=== PATIENT | female | born 1955 | race Caucasian/White ===

== ENCOUNTER 2017-11-06 22:31 | Inpatient (IN) | payer MEDICARE ==
[~2017-11-06] VITALS: Ht 165.1 cm; Wt 72.6 kg
[2017-11-06] MEDS ORDERED: ONDANSETRON ODT 4 MG TAB.RAPDIS ONE (23:14)
[2017-11-06 23:25] LABS: BASO % 0 % (0-3); EOS % 0 % (0-3); HEMATOCRIT 39.9 % (36.0-47.0); HEMOGLOBIN 13.8 g/dL (12.0-15.5); LYMPH # 0.9 x10^3/uL (1.0-4.8); LYMPH % 12 % (24-48); MEAN CORPUSCULAR HEMOGLOBIN 33 pg (25-35); MEAN CORPUSCULAR HGB CONC 35 g/dL (31-37); MEAN CORPUSCULAR VOLUME 96 fL (79-100); MONO % 14 % (0-9); NEUT # 5.4 x10^3uL (1.8-7.7); NEUT % 74 % (31-73); PLATELET COUNT 128 x10^3/uL (140-400); RED BLOOD COUNT 4.15 x10^6/uL (3.50-5.40); RED CELL DISTRIBUTION WIDTH 13.4 % (11.5-14.5); WHITE BLOOD COUNT 7.3 x10^3/uL (4.0-11.0)
[2017-11-06 23:33] LABS: ALBUMIN/GLOBULIN RATIO 0.9 (1.0-1.7); CALCIUM 8.9 mg/dL (8.5-10.1); CREATININE 0.5 mg/dL (0.6-1.0); GFR 125.9; TOTAL BILIRUBIN 1.1 mg/dL (0.2-1.0); TOTAL PROTEIN 8.4 g/dL (6.4-8.2)
--- NOTE | 2017-11-06 23:43 | EKG ---
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
[2017-11-06] MEDS ORDERED: ASPIRIN 81 MG TAB.CHEW PO ONE (23:45)
[2017-11-06] MEDS ORDERED: ONDANSETRON PF 4 MG/2 ML VIAL. IV ONE (23:45)
[2017-11-06] MEDS ORDERED: LORazepam 2 MG/ML VIAL IV ONE (23:45)
[2017-11-06] MEDS ORDERED: IV NORMAL SALINE 1,000ML 1,000 ML IV ONE (23:45)
[2017-11-07] VITALS (7 sets, daily range): BP systolic 118–138; BP diastolic 72–94
[2017-11-07 00:02] LABS: COLOR,URINE YELLOW
[2017-11-07 00:03] LABS: BILIRUBIN,URINE NEG (NEG); CLARITY,URINE HAZY; GLUCOSE,URINE NEG (NEG)
[2017-11-07 00:04] LABS: NITRITE,URINE NEG (NEG); UROBILINOGEN,URINE 1 mg/dL (0.2 mg/dL)
[2017-11-07 00:12] LABS: BACTERIA,URINE FEW /HPF (0-FEW); SQUAMOUS EPITHELIAL CELL,UR FEW /LPF
[2017-11-07 00:15] LABS: POTASSIUM 3.6 mmol/L (3.5-5.1)
[2017-11-07] MEDS ORDERED: IV NORMAL SALINE 1,000ML 1,000 ML IV SCH (00:52)
[2017-11-07] MEDS ORDERED: RIVAROXABAN 10 MG TABLET. PO ONE (02:00)
[2017-11-07 02:25] LABS: CALCIUM 8.6 mg/dL (8.5-10.1); CREATININE 0.7 mg/dL (0.6-1.0); GFR 85.4; POTASSIUM 3.9 mmol/L (3.5-5.1)
[2017-11-07] MEDS ORDERED: LORazepam 2 MG/ML VIAL IV PRN ×2 (03:00)
--- NOTE | 2017-11-07 03:46 | PHYS DOC ---
Adult General Chief Complaint Chief Complaint: TREMORS HPI HPI 62-year-old female with a history of atrial fibrillation previously on Zarrella toe but noncompliant over the last year. Patient also has muscular dystrophy which manifests itself mostly in her lower legs bilaterally. She intermittently has tremors as her baseline. Patient now presents to the emergency department complaining of generalized weakness and malaise. She states she's felt this way previously when her electrolytes were out of whack and she is concerned that that might be the case today. No chest pain or shortness of breath. Denies abdominal pain. Normal bowel and bladder habits. Review of Systems Review of Systems Constitutional: Denies fever or chills [] Eyes: Denies change in visual acuity, redness, or eye pain [] HENT: Denies nasal congestion or sore throat [] Respiratory: Denies cough or shortness of breath [] Cardiovascular: No additional information not addressed in HPI [] GI: Denies abdominal pain, nausea, vomiting, bloody stools or diarrhea [] : Denies dysuria or hematuria [] Musculoskeletal: Denies back pain or joint pain [] Integument: Denies rash or skin lesions [] Neurologic: Denies headache, focal weakness or sensory changes [] Endocrine: Denies polyuria or polydipsia [] All other systems were reviewed and found to be within normal limits, except as documented in this note. Current Medications Current Medications Current Medications Medications (Trade) Dose Ordered Sig/Josef Start Time Stop Time Status Last Admin Dose Admin Aspirin (Children'S Aspirin) 324 mg 1X ONCE 11/06/17 23:45 11/06/17 23:46 DC 11/06/17 23:26 324 MG Lorazepam (Ativan) 1 mg 1X ONCE 11/06/17 23:45 11/06/17 23:46 DC 11/06/17 23:45 1 MG Ondansetron HCl (Zofran Odt) 4 mg STK-MED ONCE 11/06/17 23:14 11/06/17 23:15 DC Ondansetron HCl (Zofran) 4 mg PRN Q4HRS PRN 11/07/17 01:00 11/08/17 00:59 Sodium Chloride 1,000 ml @ 125 mls/hr Q8H 11/07/17 00:52 11/07/17 02:57 DC 11/07/17 01:57 125 MLS/HR Allergies Allergies Allergies Coded Allergies Type Severity Reaction Last Updated Verified No Known Drug Allergies 11/06/17 No Physical Exam Physical Exam Chronically weak appearing female mild tremor. Both ankles show mild internal internally rotation which is baseline for her. She is generally weak with no focal deficit. Clear lungs irregularly irregular rhythm no tachycardia on exam Constitutional: no acute distress, non-toxic appearance. [] HENT: Normocephalic, atraumatic, bilateral external ears normal, oropharynx moist, no oral exudates, nose normal. [] Eyes: PERRLA, EOMI, conjunctiva normal, no discharge. [] Neck: Normal range of motion, no tenderness, supple, no stridor. [] Cardiovascular: Atrial fibrillation on monitor no murmur [] Lungs & Thorax: Bilateral breath sounds clear to auscultation [] Abdomen: Bowel sounds normal, soft, no tenderness, no masses, no pulsatile masses. [] Skin: Warm, dry, no erythema, no rash. [] Back: No tenderness, no CVA tenderness. [] Extremities: No tenderness, no cyanosis, no clubbing, ROM intact, no edema. [] Neurologic: Alert and oriented X 3, tremor, normal sensory function, no focal deficits noted. [] Psychologic: Affect mildly anxious Current Patient Data Vital Signs Vital Signs Date Time Temp Pulse Resp B/P (MAP) Pulse Ox O2 Delivery O2 Flow Rate FiO2 11/07/17 01:50 98.7 127 18 125/82 (96) 98 Room Air Lab Results Laboratory Tests Test 11/06/17 22:56 11/06/17 23:27 11/07/17 02:05 White Blood Count 7.3 x10^3/uL (4.0-11.0) Red Blood Count 4.15 x10^6/uL (3.50-5.40) Hemoglobin 13.8 g/dL (12.0-15.5) Hematocrit 39.9 % (36.0-47.0) Mean Corpuscular Volume 96 fL (79-100) Mean Corpuscular Hemoglobin 33 pg (25-35) Mean Corpuscular Hemoglobin Concent 35 g/dL (31-37) Red Cell Distribution Width 13.4 % (11.5-14.5) Platelet Count 128 x10^3/uL (140-400) L Neutrophils (%) (Auto) 74 % (31-73) H Lymphocytes (%) (Auto) 12 % (24-48) L Monocytes (%) (Auto) 14 % (0-9) H Eosinophils (%) (Auto) 0 % (0-3) Basophils (%) (Auto) 0 % (0-3) Neutrophils # (Auto) 5.4 x10^3uL (1.8-7.7) Lymphocytes # (Auto) 0.9 x10^3/uL (1.0-4.8) L Monocytes # (Auto) 1.0 x10^3/uL (0.0-1.1) Eosinophils # (Auto) 0.0 x10^3/uL (0.0-0.7) Basophils # (Auto) 0.0 x10^3/uL (0.0-0.2) Sodium Level 125 mmol/L (136-145) L 127 mmol/L (136-145) L Potassium Level 3.6 mmol/L (3.5-5.1) 3.9 mmol/L (3.5-5.1) Chloride Level 88 mmol/L (98-107) L 92 mmol/L (98-107) L Carbon Dioxide Level 21 mmol/L (21-32) 20 mmol/L (21-32) L Anion Gap 16 (6-14) H 15 (6-14) H Blood Urea Nitrogen 4 mg/dL (7-20) L 4 mg/dL (7-20) L Creatinine 0.5 mg/dL (0.6-1.0) L 0.7 mg/dL (0.6-1.0) Estimated GFR (Cockcroft-Gault) 125.9 85.4 BUN/Creatinine Ratio 8 (6-20) Glucose Level 99 mg/dL (70-99) 110 mg/dL (70-99) H Calcium Level 8.9 mg/dL (8.5-10.1) 8.6 mg/dL (8.5-10.1) Total Bilirubin 1.1 mg/dL (0.2-1.0) H Aspartate Amino Transferase (AST) 103 U/L (15-37) H Alanine Aminotransferase (ALT) 126 U/L (14-59) H Alkaline Phosphatase 99 U/L (46-116) Troponin I Quantitative < 0.017 ng/mL (0-0.055) Total Protein 8.4 g/dL (6.4-8.2) H Albumin 4.0 g/dL (3.4-5.0) Albumin/Globulin Ratio 0.9 (1.0-1.7) L Urine Collection Type Unknown Urine Color Yellow Urine Clarity Hazy Urine pH 6.5 Urine Specific [place] 1.015 Urine Protein 30 mg/dl (NEG-TRACE) Urine Glucose (UA) Neg mg/dL (NEG) Urine Ketones (Stick) 15 mg/dL (NEG) Urine Blood Trace (NEG) Urine Nitrite Neg (NEG) Urine Bilirubin Neg (NEG) Urine Urobilinogen Dipstick 1 mg/dL (0.2 mg/dL) Urine Leukocyte Esterase Small (NEG) Urine RBC 1-2 /HPF (0-2) Urine WBC 5-10 /HPF (0-4) Urine Squamous Epithelial Cells Few /LPF Urine Bacteria Few /HPF (0-FEW) Urine Mucus Slight /LPF EKG EKG EKG with atrial fibrillation ventricular rate at 112, normal axis, no STEMI, interpreted by me[] Radiology/Procedures Radiology/Procedures Chest x-ray with chronic changes no acute disease interpreted by me[] Course & Med Decision Making Course & Med Decision Making Pertinent Labs and Imaging studies reviewed. (See chart for details) [] Dragon Disclaimer Dragon Disclaimer This electronic medical record was generated, in whole or in part, using a voice recognition dictation system. Departure Departure: Impression: Primary Impression: Hyponatremia Additional Impressions: Hypochloremia Atrial fibrillation, chronic Noncompliance with medication regimen Disposition: ADMITTED INPATIENT Admitting Physician: Damon Rutledge Condition: GUARDED Referrals: PCP,NO (PCP) Problem Qualifiers ELOISA MEJIA MD November 07, 2017 03:46
[2017-11-07] MEDS: ONDANSETRON PF 4 MG/2 ML VIAL. IV PRN ×2 (04:01→11:59)
[2017-11-07] MEDS ORDERED: ONDANSETRON ODT 4 MG TAB.RAPDIS PO ONE (07:15)
[2017-11-07 08:22] LABS: BARBITURATES NEG (NEG); BENZODIAZEPINES NEG (NEG); CANNABINOIDS NEG (NEG); COCAINE NEG (NEG); METHADONE NEG (NEG); OPIATES NEG (NEG); PHENCYCLIDINE NEG (NEG)
[2017-11-07 08:25] LABS: ALBUMIN 3.7 g/dL (3.4-5.0); DIRECT BILIRUBIN 0.4 mg/dL (0.0-0.2); TOTAL BILIRUBIN 1.2 mg/dL (0.2-1.0); TOTAL PROTEIN 8.2 g/dL (6.4-8.2)
[2017-11-07 08:27] LABS: AMPHETAMINE/METHAMPHETAMINE NEG (NEG)
--- NOTE | 2017-11-07 09:04 | RAD ---
AP chest. HISTORY: Chest pain AP view was taken of the chest. Lungs are clear. There is no pneumothorax or pleural effusion. There is a small hiatus hernia behind the heart. Heart is normal in size. IMPRESSION: 1. No acute chest disease. Electronically signed by: Emeka Zaidi MD (11/07/2017 9:01 AM) [facility]
[2017-11-07] MEDS: THIAMINE IM 200 MG/2 ML VIAL. IM SCH (10:15)
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
[2017-11-07] MEDS ORDERED: chlordiazePOXIDE HCL 25 MG CAPSULE PO PRN (11:00)
--- NOTE | 2017-11-07 11:33 | PDOC2 ---
CONSULT Date of Admission DATE: 11/07/17 TIME: 11:33 Reason for Consult: Atrial fibrillation Referring Physician: Dr. Rutledge Chief Complaint Tremors Source: Chart review, Patient Problem List Problems Medical Problems: (1) Atrial fibrillation, chronic Status: Acute (2) Hypochloremia Status: Acute (3) Hyponatremia Status: Acute (4) Noncompliance with medication regimen Status: Acute History of Present Illness 62-year-old female who was diagnosed with atrial fibrillation approximately one year ago in [place], [place] apparently was visiting her son when she started having tremors and weakness. She was apparently drinking alcohol for the past couple of days and actually had nausea and vomiting. She was found to be in atrial fibrillation with rapid ventricular response in the emergency room and admitted for further management. She stopped taking her medications for atrial fibrillation including Xarelto approximately 3 months after initiation because she did not want to take the medications. She was apparently diagnosed with muscular dystrophy when she was 27 years old. She denied any chest pain, orthopnea/PND, syncope. Past Medical History Atrial fibrillation, most probably chronic Congestive heart failure Gastroesophageal reflux disease Family History Negative for premature coronary artery disease Social History Patient has history of alcohol abuse but denied any smoking or drug abuse Current Medications Current Medications Aspirin (Children'S Aspirin) 324 mg 1X ONCE PO Last administered on 11/06/17at 23:26; Start 11/06/17 at 23:45; Stop 11/07/17 at 10:53; Status DC Ondansetron HCl (Zofran) 4 mg 1X ONCE IV ; Start 11/06/17 at 23:45; Stop at 23:46; Status DC Sodium Chloride 1,000 ml @ 1,000 mls/hr 1X ONCE IV Last administered on at 23:26; Start 11/06/17 at 23:45; Stop 11/07/17 at 00:44; Status DC Ondansetron HCl (Zofran Odt) 4 mg STK-MED ONCE .ROUTE ; Start 11/06/17 at 23:14 ; Stop 11/06/17 at 23:15; Status DC Lorazepam (Ativan) 1 mg 1X ONCE IV Last administered on 11/06/17at 23:45; Start 11/06/17 at 23:45; Stop 11/06/17 at 23:46; Status DC Ondansetron HCl (Zofran) 4 mg PRN Q4HRS PRN IV NAUSEA/VOMITING Last administered on 11/07/17at 04:01; Start 11/07/17 at 01:00; Stop 11/08/17 at 00:59 Sodium Chloride 1,000 ml @ 125 mls/hr Q8H IV Last administered on 11/07/17at 01 :57; Start 11/07/17 at 00:52; Stop 11/07/17 at 02:57; Status DC Rivaroxaban (Xarelto) 20 mg 1X ONCE PO Last administered on 11/07/17at 01:56; Start 11/07/17 at 02:00; Stop 11/07/17 at 02:01; Status DC Lorazepam (Ativan) 2 mg PRN Q1HR PRN IV For CIWA 8-14 Last administered on 11/07at 09:31; Start 11/07/17 at 03:00; Stop 11/07/17 at 10:53; Status DC Lorazepam (Ativan) 4 mg PRN Q1HR PRN IV For CIWA 15 or greater; Start 11/07/17 at 03:00 Ondansetron HCl (Zofran Odt) 4 mg 1X ONCE PO Last administered on 11/06/17at 23 :15; Start 11/07/17 at 07:15; Stop 11/07/17 at 07:16; Status DC Thiamine HCl (Thiamine Im) 100 mg DAILY IM ; Start 11/07/17 at 10:15 Prenat Multivit/ Manager Unix/Iron/Folic Ac (Multivitamin ) 1 tab DAILY PO ; Start 11/08/17 at 09:00 Multivitamins/ Minerals 10 ml/ Folic Acid 1 mg/ Thiamine HCl 100 mg/Sodium Chloride 1,011.1 ml @ 100 mls/ hr 1X ONCE IV ; Start 11/07/17 at 12:00; Stop 11/07/17 at 22:06 Rivaroxaban (Xarelto) 20 mg DAILYWSUP PO ; Start 11/07/17 at 17:00 Metoprolol Succinate (Toprol Xl) 25 mg DAILY PO ; Start 11/07/17 at 11:00 Chlordiazepoxide (Librium) 50 mg PRN Q1HR PRN PO For CIWA 8-14; Start 11/07/17 at 11:00 Active Scripts Active Reported No Known Medications Prior To Admisstion (Info) Each 1 Each Allergies: Coded Allergies: No Known Drug Allergies (Unverified , 11/06/17) General: YES: Other (tremors) PSYCHOLOGICAL ROS: No: Hallucinations, Mood Swings Eyes: No: Loss of vision HEENT: No: Epistaxis Respiratory: No: Hemoptysis, Shortness of breath Cardiovascular: yes: Palpitations; No: Chest Pain Gastrointestinal: YES: Nausea, Vomiting Genitourinary: No: Henaturia Neurological: No: Seizures Skin: No: Rash General: Alert, Oriented X3 HEENT: Atraumatic Lungs: Clear to auscultation Heart: Other (heart rate is irregular) Abdomen: Soft Extremities: No edema Psych/Mental Status: Mood NL VITALS Vital Signs Date Time Temp Pulse Resp B/P (MAP) Pulse Ox O2 Delivery O2 Flow Rate FiO2 11/07/17 08:20 Room Air 11/07/17 08:16 105 18 132/81 (98) 98 11/07/17 01:50 98.7 Labs Laboratory Tests Test 11/06/17 22:56 11/06/17 23:27 11/07/17 00:01 11/07/17 02:05 White Blood Count 7.3 x10^3/uL (4.0-11.0) Red Blood Count 4.15 x10^6/uL (3.50-5.40) Hemoglobin 13.8 g/dL (12.0-15.5) Hematocrit 39.9 % (36.0-47.0) Mean Corpuscular Volume 96 fL (79-100) Mean Corpuscular Hemoglobin 33 pg (25-35) Mean Corpuscular Hemoglobin Concent 35 g/dL (31-37) Red Cell Distribution Width 13.4 % (11.5-14.5) Platelet Count 128 x10^3/uL (140-400) Neutrophils (%) (Auto) 74 % (31-73) Lymphocytes (%) (Auto) 12 % (24-48) Monocytes (%) (Auto) 14 % (0-9) Eosinophils (%) (Auto) 0 % (0-3) Basophils (%) (Auto) 0 % (0-3) Neutrophils # (Auto) 5.4 x10^3uL (1.8-7.7) Lymphocytes # (Auto) 0.9 x10^3/uL (1.0-4.8) Monocytes # (Auto) 1.0 x10^3/uL (0.0-1.1) Eosinophils # (Auto) 0.0 x10^3/uL (0.0-0.7) Basophils # (Auto) 0.0 x10^3/uL (0.0-0.2) Sodium Level 125 mmol/L (136-145) 127 mmol/L (136-145) Potassium Level 3.6 mmol/L (3.5-5.1) 3.9 mmol/L (3.5-5.1) Chloride Level 88 mmol/L (98-107) 92 mmol/L (98-107) Carbon Dioxide Level 21 mmol/L (21-32) 20 mmol/L (21-32) Anion Gap 16 (6-14) 15 (6-14) Blood Urea Nitrogen 4 mg/dL (7-20) 4 mg/dL (7-20) Creatinine 0.5 mg/dL (0.6-1.0) 0.7 mg/dL (0.6-1.0) Estimated GFR (Cockcroft-Gault) 125.9 85.4 BUN/Creatinine Ratio 8 (6-20) Glucose Level 99 mg/dL (70-99) 110 mg/dL (70-99) Calcium Level 8.9 mg/dL (8.5-10.1) 8.6 mg/dL (8.5-10.1) Total Bilirubin 1.1 mg/dL (0.2-1.0) 1.2 mg/dL (0.2-1.0) Aspartate Amino Transf (AST/SGOT) 103 U/L (15-37) 88 U/L (15-37) Alanine Aminotransferase (ALT/SGPT) 126 U/L (14-59) 115 U/L (14-59) Alkaline Phosphatase 99 U/L (46-116) 92 U/L (46-116) Troponin I Quantitative < 0.017 ng/mL (0-0.055) Total Protein 8.4 g/dL (6.4-8.2) 8.2 g/dL (6.4-8.2) Albumin 4.0 g/dL (3.4-5.0) 3.7 g/dL (3.4-5.0) Albumin/Globulin Ratio 0.9 (1.0-1.7) Urine Collection Type Unknown Urine Color Yellow Urine Clarity Hazy Urine pH 6.5 Urine Specific [place] 1.015 Urine Protein 30 mg/dl (NEG-TRACE) Urine Glucose (UA) Neg mg/dL (NEG) Urine Ketones (Stick) 15 mg/dL (NEG) Urine Blood Trace (NEG) Urine Nitrite Neg (NEG) Urine Bilirubin Neg (NEG) Urine Urobilinogen Dipstick 1 mg/dL (0.2 mg/dL) Urine Leukocyte Esterase Small (NEG) Urine RBC 1-2 /HPF (0-2) Urine WBC 5-10 /HPF (0-4) Urine Squamous Epithelial Cells Few /LPF Urine Bacteria Few /HPF (0-FEW) Urine Mucus Slight /LPF Urine Opiates Screen Neg (NEG) Urine Methadone Screen Neg (NEG) Urine Barbiturates Neg (NEG) Urine Phencyclidine Screen Neg (NEG) Urine Amphetamine/Methamphetamine Neg (NEG) Urine Benzodiazepines Screen Neg (NEG) Urine Cocaine Screen Neg (NEG) Urine Cannabinoids Screen Neg (NEG) Urine Ethyl Alcohol Pos (NEG) Erythrocyte Sedimentation Rate 4 (0-25) Direct Bilirubin 0.4 mg/dL (0.0-0.2) Creatine Kinase 205 U/L (26-192) Ethyl Alcohol Level < 10 mg/dL (0-10) Assessment/Plan 1. Atrial fibrillation most probably permanent, presenting with rapid ventricular response. Heart rate better controlled since admission. Continue Xarelto for stroke prophylaxis and beta blockers for rate control. Check 2-D echo to assess LV systolic function - could be done as an outpatient. 2. Nausea, vomiting, hyponatremia and tremor: Treat per IM 3. Alcohol abuse: Monitor for withdrawal symptoms Thank you for your consultation YAZ GODFREY MD November 07, 2017 11:33
--- NOTE | 2017-11-07 11:55 | RAD ---
EXAM: Head CT without contrast. HISTORY: Tremors. TECHNIQUE: Computed tomographic images of the head were obtained without contrast. *One or more of the following individualized dose reduction techniques were utilized for this examination: 1. Automated exposure control. 2. Adjustment of the mA and/or kV according to patient size. 3. Use of iterative reconstruction technique. COMPARISON: None. FINDINGS: There is no acute or subacute extra-axial or intraparenchymal hemorrhage. There is no mass effect or midline shift. There is no hydrocephalus. There is hypodensity within the superior right cerebellum likely due to chronic infarction. There are scattered areas of hypodensity throughout the cerebral white matter, likely due to chronic small vessel disease. There is cerebral atrophy. The visualized portions of the orbits, paranasal sinuses and mastoid air cells are unremarkable. No suspicious calvarial lesion is seen. IMPRESSION: 1. Scattered areas of hypodensity within the cerebral white matter, likely due to chronic small vessel disease. 2. Suspected chronic infarct within the superior right cerebellum. 3. Cerebral atrophy. 4. Note is made that MRI is more sensitive for acute infarction. Electronically signed by: Emily Coates MD (11/07/2017 11:52 AM) [facility]
[2017-11-07] MEDS: METOPROLOL SUCC 24HR ER 25 MG TAB.ER.24H. PO SCH (11:58)
[2017-11-07] MEDS ORDERED: MVI, ADULT NO.4 WITH VIT K 10 ML, FOLIC ACID SYRINGE for ER 1 MG, THIAMINE 100 MG in IV... IV ONE ×4 (12:00)
[2017-11-07] MEDS ORDERED: IOHEXOL 300 MG/ML 75 ML VIAL. IV ONE (15:45)
[2017-11-07] MEDS: RIVAROXABAN 10 MG TABLET. PO SCH (17:24)
--- NOTE | 2017-11-07 18:50 | RAD ---
CTA neck and head with and without contrast 11/07/2017. Reason for exam: Cerebellar infarct. Helical thin section CT images were performed through the neck and head using an infusion of 75 mL Omnipaque 300. Multiplanar and 3-D reformations were performed. Carotid stenoses in the neck were graded per NASCET criteria. Exposure: One or more of the following individualized dose reduction techniques were utilized for this examination: 1. Automated exposure control 2. Adjustment of the mA and/or kV according to patient size 3. Use of iterative reconstruction technique. CTA neck findings: There appears to be the standard branching pattern of the great vessels from the aorta. The common carotid arteries have mild tortuosity and there is mild motion artifact, but there is no evidence of stenosis or significant plaque. The carotid bulbs are widely patent. The internal carotid arteries show some tortuosity in the neck. There is probably mild motion artifact. There may be some fibromuscular dysplasia bilaterally through the distal internal carotid arteries. No significant stenosis is seen. Both vertebral arteries are patent. The left is larger than the right. There is mild motion artifact. No narrowing is seen. There is no evidence of occlusion or dissection. The subclavian arteries show no narrowing. Although this study was not performed to evaluate other structures, no adenopathy or soft tissue mass is seen in the neck. The airway appears normal. The salivary glands and thyroid show no abnormality. IMPRESSION: No acute abnormality. Possible FMD of distal internal carotid arteries in the neck versus motion artifact. CTA head findings: The distal vertebral arteries are patent and show no apparent abnormality extending to their confluence. The basilar artery and internal carotid arteries are patent extending through the skull base to the brain. There is probably mild motion artifact, but no focal narrowing or aneurysmal dilatation is seen. The anterior, middle and posterior cerebral branches are patent bilaterally and show no apparent abnormality extending to their major branch points. No focal narrowing or aneurysmal dilatation is seen. No abnormal vascularity is evident. The visualized cerebellar branches appear normal. IMPRESSION: Normal CTA of the head. Electronically signed by: Danielito Segovia Jr., MD (11/07/2017 6:46 PM) [facility]
[2017-11-08] VITALS (8 sets, daily range): BP systolic 100–137; BP diastolic 68–90
[2017-11-08 05:51] LABS: BASO % 0 % (0-3); EOS % 1 % (0-3); HEMATOCRIT 33.1 % (36.0-47.0); HEMOGLOBIN 11.3 g/dL (12.0-15.5); LYMPH # 0.9 x10^3/uL (1.0-4.8); LYMPH % 17 % (24-48); MEAN CORPUSCULAR HEMOGLOBIN 33 pg (25-35); MEAN CORPUSCULAR HGB CONC 34 g/dL (31-37); MEAN CORPUSCULAR VOLUME 98 fL (79-100); MONO # 0.8 x10^3/uL (0.0-1.1); MONO % 16 % (0-9); NEUT # 3.5 x10^3uL (1.8-7.7); NEUT % 66 % (31-73); PLATELET COUNT 105 x10^3/uL (140-400); RED BLOOD COUNT 3.38 x10^6/uL (3.50-5.40); RED CELL DISTRIBUTION WIDTH 13.1 % (11.5-14.5); WHITE BLOOD COUNT 5.3 x10^3/uL (4.0-11.0)
[2017-11-08 05:58] LABS: CALCIUM 8.3 mg/dL (8.5-10.1); CREATININE 0.6 mg/dL (0.6-1.0); POTASSIUM 3.4 mmol/L (3.5-5.1)
[2017-11-08] MEDS: THIAMINE IM 200 MG/2 ML VIAL. IM SCH (08:01)
[2017-11-08] MEDS: METOPROLOL SUCC 24HR ER 25 MG TAB.ER.24H. PO SCH (08:01)
[2017-11-08] MEDS ORDERED: PRENATAL MULTIVITAMIN TABLET. PO SCH (09:00)
--- NOTE | 2017-11-08 12:01 | CONS ---
DATE OF CONSULTATION: REFERRING PHYSICIAN: Dr. Rutledge. REASON FOR CONSULTATION: Unsteadiness and tremor. HISTORY OF PRESENT ILLNESS: This is a 62-year-old right-handed female who was admitted to Emergency Room after she presented with a chief complaint of worsening of the tremor of the upper extremity and unsteady gait. The patient stated she has had a longstanding history of muscular dystrophy since born, diagnosed genetically. She stated she never had a tremor of the upper extremity until 4 days ago and it got worse on the day of admission. The patient is a resident of a local home. She came to [place] for her son's graduation. She stated she has been drinking beer excessively throughout her adulthood, the last drink was 1 day prior to the admission. The patient was found to have atrial fibrillation with rapid ventricular response. She stated she used to be on ____, but she has not been taking the medicine for a while because of is not covered by her insurance. She denies headaches, visual disturbances, nausea, vomiting, chest pain, shortness of breath, but she complains of palpitations. The patient stated she is anxious person in nature. She has had frequent falls recently. 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 Currently, she denies numbness or paresthesia. PAST MEDICAL HISTORY: The patient states she had muscular dystrophy when she was a child and she has had abnormal gait since. She also has history of atrial fibrillation, congestive heart failure, alcoholism, and GERD. FAMILY HISTORY: Positive for muscular dystrophy affecting several members in her family. SOCIAL HISTORY: She is . She denies smoking, but she drinks 4-5 beers daily throughout her life. She denies illegal drug use. CURRENT HOME MEDICATIONS: None. ALLERGIES: No known drug allergies. PHYSICAL EXAMINATION: GENERAL: Well-developed, well-nourished white female, not in acute distress. She weighs ____ pounds. VITAL SIGNS: Blood pressure is 132/81, respiratory rate 18, pulse is 105, oxygen saturation 98% on room air. HEENT: Normocephalic, atraumatic, otherwise unremarkable. NECK: Supple, negative for carotid bruit, JVD, or thyromegaly. LUNGS: Clear to A and P. CARDIOVASCULAR: Regular rhythm with rapid ventricular response. Normal S1, S2. No murmur. ABDOMEN: Soft. Bowel sounds positive. There is no tenderness or organomegaly. EXTREMITIES: Negative for cyanosis, clubbing or pitting edema, but positive for hammertoes. NEUROLOGICAL: Mental status: The patient is alert and oriented x 3. Speech is fluent. There is no language dysfunction. The patient recalls 2/3 immediately and after 1 and 3 minutes. Judgment abstract and thinkings are normal. The patient denies hallucination or delusion. Cranial nerves: Visual park are full. The pupils are reactive to light and accommodation. The extraocular movements are intact. There is no nystagmus. There is no facial motor or sensory deficit. Hearing is intact bilaterally. The palate is elevated symmetrically. Sternocleidomastoid muscles are powerful bilaterally. The patient shrugs her shoulders symmetrically, protrudes her tongue in the midline without fasciculation or atrophy. Motor: No focal muscle bulk was seen. The tone is normal. The strength is 4/5 throughout. The patient has marked postural and kinetic tremors with intention tremor of both upper extremities with abnormal [id number]. Sensory: Revealed normal pinprick, light touch, vibratory and position senses. Deep tendon reflexes were symmetric and hypoactive with absent Achilles responses. Gait: The patient has unsteady stance with ataxia and abnormal tandem gait. LABORATORY DATA: CBC revealed white cells of 7300, hemoglobin 13.8, hematocrit 39.9, platelet count 100,000-108,000. Chemistry revealed a sodium of 127, potassium 3.9, chloride 92, CO2 of 20, BUN 4, creatinine 0.7, glucose 110 and calcium 8.6. Liver enzymes elevated of AST and ALT with total bilirubin of 1.2 and direct bilirubin is 0.4. Troponin level is normal. Creatinine kinase is 205, probably secondary to frequent falls. Urinalysis is small urinary leukocyte esterase with white blood cells of 5-10. Urine drug screen is positive for alcohol. IMPRESSION: 1. Persistent postural and kinetic tremor of the upper extremities, which has worsened in the last 4 days, likely due to chronic alcoholism and possible alcohol withdrawal, aggravated by anxiety. 2. Permanent atrial fibrillations with current rapid ventricular response. 3. Alcoholism. 4. Hyponatremia. 5. Ataxia, probably multifactorial. 6. 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 7. Thrombocytopenia likely due to alcoholism. RECOMMENDATIONS: 1. A head CT scan with CT angio of the neck. 2. Cardiology consult and restart the patient on anticoagulant, ____. 3. Echocardiogram. 4. To start alcohol withdrawal protocol. 5. Correct hyponatremia slowly. 6. Alcohol cessation. M Ricardo HUNTER MD DR: BRYANT/jewel JOB#: [id number] / [id number]
[2017-11-08] MEDS ORDERED: RIVA20TA2 PO (13:12)
[2017-11-08] MEDS ORDERED: PREN1TAB13 PO (13:12)
[2017-11-08] MEDS ORDERED: METO-239 PO (13:12)
--- NOTE | 2017-11-08 13:14 | DISCH ---
DISCHARGE INSTRUCTIONS-DC Condition on Discharge Condition on Discharge: Stable Activity after Discharge Activity Instructions for Disc: Progressive ambulation Diet after Discharge Diet after Discharge: Cardiac Checks after Discharge Checks after discharge: Check blood press - daily Contacting the DR. after DC Call your doctor for: If your condition worsens Follow-Up Follow up with: PCP JULIA (call tomorrow for appt) DIAMOND YU MD November 08, 2017 13:14
[2017-11-08] MEDS ORDERED: POTASSIUM CHLORIDE 20 MEQ TABLET.ER. PO ONE (13:15)
--- NOTE | 2017-11-08 13:20 | PDOC3 ---
Discharge Summary Discharge Summary Date of Admission Date of Admission: November 07, 2017 at 01:37 Admitting Diagnosis Hyponatremia Gait instability Alcoholism Atrial fibrillation Date of Discharge: November 08, 2017 Discharge Diagnosis Hyponatremia Gait instability Alcoholism Atrial fibrillation CVA (Cerebellar) Laboratory Findings Laboratory Tests Test 11/06/17 22:56 11/06/17 23:27 11/07/17 00:01 11/07/17 02:05 White Blood Count 7.3 x10^3/uL (4.0-11.0) Red Blood Count 4.15 x10^6/uL (3.50-5.40) Hemoglobin 13.8 g/dL (12.0-15.5) Hematocrit 39.9 % (36.0-47.0) Mean Corpuscular Volume 96 fL (79-100) Mean Corpuscular Hemoglobin 33 pg (25-35) Mean Corpuscular Hemoglobin Concent 35 g/dL (31-37) Red Cell Distribution Width 13.4 % (11.5-14.5) Platelet Count 128 x10^3/uL (140-400) Neutrophils (%) (Auto) 74 % (31-73) Lymphocytes (%) (Auto) 12 % (24-48) Monocytes (%) (Auto) 14 % (0-9) Eosinophils (%) (Auto) 0 % (0-3) Basophils (%) (Auto) 0 % (0-3) Neutrophils # (Auto) 5.4 x10^3uL (1.8-7.7) Lymphocytes # (Auto) 0.9 x10^3/uL (1.0-4.8) Monocytes # (Auto) 1.0 x10^3/uL (0.0-1.1) Eosinophils # (Auto) 0.0 x10^3/uL (0.0-0.7) Basophils # (Auto) 0.0 x10^3/uL (0.0-0.2) Sodium Level 125 mmol/L (136-145) 127 mmol/L (136-145) Potassium Level 3.6 mmol/L (3.5-5.1) 3.9 mmol/L (3.5-5.1) Chloride Level 88 mmol/L (98-107) 92 mmol/L (98-107) Carbon Dioxide Level 21 mmol/L (21-32) 20 mmol/L (21-32) Anion Gap 16 (6-14) 15 (6-14) Blood Urea Nitrogen 4 mg/dL (7-20) 4 mg/dL (7-20) Creatinine 0.5 mg/dL (0.6-1.0) 0.7 mg/dL (0.6-1.0) Estimated GFR (Cockcroft-Gault) 125.9 85.4 BUN/Creatinine Ratio 8 (6-20) Glucose Level 99 mg/dL (70-99) 110 mg/dL (70-99) Calcium Level 8.9 mg/dL (8.5-10.1) 8.6 mg/dL (8.5-10.1) Total Bilirubin 1.1 mg/dL (0.2-1.0) 1.2 mg/dL (0.2-1.0) Aspartate Amino Transf (AST/SGOT) 103 U/L (15-37) 88 U/L (15-37) Alanine Aminotransferase (ALT/SGPT) 126 U/L (14-59) 115 U/L (14-59) Alkaline Phosphatase 99 U/L (46-116) 92 U/L (46-116) Troponin I Quantitative < 0.017 ng/mL (0-0.055) Total Protein 8.4 g/dL (6.4-8.2) 8.2 g/dL (6.4-8.2) Albumin 4.0 g/dL (3.4-5.0) 3.7 g/dL (3.4-5.0) Albumin/Globulin Ratio 0.9 (1.0-1.7) Urine Collection Type Unknown Urine Color Yellow Urine Clarity Hazy Urine pH 6.5 Urine Specific [place] 1.015 Urine Protein 30 mg/dl (NEG-TRACE) Urine Glucose (UA) Neg mg/dL (NEG) Urine Ketones (Stick) 15 mg/dL (NEG) Urine Blood Trace (NEG) Urine Nitrite Neg (NEG) Urine Bilirubin Neg (NEG) Urine Urobilinogen Dipstick 1 mg/dL (0.2 mg/dL) Urine Leukocyte Esterase Small (NEG) Urine RBC 1-2 /HPF (0-2) Urine WBC 5-10 /HPF (0-4) Urine Squamous Epithelial Cells Few /LPF Urine Bacteria Few /HPF (0-FEW) Urine Mucus Slight /LPF Urine Opiates Screen Neg (NEG) Urine Methadone Screen Neg (NEG) Urine Barbiturates Neg (NEG) Urine Phencyclidine Screen Neg (NEG) Urine Amphetamine/Methamphetamine Neg (NEG) Urine Benzodiazepines Screen Neg (NEG) Urine Cocaine Screen Neg (NEG) Urine Cannabinoids Screen Neg (NEG) Urine Ethyl Alcohol Pos (NEG) Erythrocyte Sedimentation Rate 4 (0-25) Direct Bilirubin 0.4 mg/dL (0.0-0.2) Creatine Kinase 205 U/L (26-192) Ethyl Alcohol Level < 10 mg/dL (0-10) Test 11/07/17 03:30 11/08/17 05:00 Nasal Screen MRSA (PCR) Negative (Negative) White Blood Count 5.3 x10^3/uL (4.0-11.0) Red Blood Count 3.38 x10^6/uL (3.50-5.40) Hemoglobin 11.3 g/dL (12.0-15.5) Hematocrit 33.1 % (36.0-47.0) Mean Corpuscular Volume 98 fL (79-100) Mean Corpuscular Hemoglobin 33 pg (25-35) Mean Corpuscular Hemoglobin Concent 34 g/dL (31-37) Red Cell Distribution Width 13.1 % (11.5-14.5) Platelet Count 105 x10^3/uL (140-400) Neutrophils (%) (Auto) 66 % (31-73) Lymphocytes (%) (Auto) 17 % (24-48) Monocytes (%) (Auto) 16 % (0-9) Eosinophils (%) (Auto) 1 % (0-3) Basophils (%) (Auto) 0 % (0-3) Neutrophils # (Auto) 3.5 x10^3uL (1.8-7.7) Lymphocytes # (Auto) 0.9 x10^3/uL (1.0-4.8) Monocytes # (Auto) 0.8 x10^3/uL (0.0-1.1) Eosinophils # (Auto) 0.0 x10^3/uL (0.0-0.7) Basophils # (Auto) 0.0 x10^3/uL (0.0-0.2) Sodium Level 134 mmol/L (136-145) Potassium Level 3.4 mmol/L (3.5-5.1) Chloride Level 100 mmol/L (98-107) Carbon Dioxide Level 21 mmol/L (21-32) Anion Gap 13 (6-14) Blood Urea Nitrogen 3 mg/dL (7-20) Creatinine 0.6 mg/dL (0.6-1.0) Estimated GFR (Cockcroft-Gault) 102.0 Glucose Level 75 mg/dL (70-99) Calcium Level 8.3 mg/dL (8.5-10.1) Hospital Course Pt was admitted through ER due to weakness and gait instability. Pt w/ chronic tremor, recent increasing difficulty w/ balance. Pt's sodium was 124. Treated w/ IVF and fluid restriction. Pt found to have significant alcohol history and did show some signs of withdrawal, was tapered off Librium. Sodium up to 134 today. Potassium 3.4, given 40 meq daily x 1 prior to discharge. Pt started on Toprol XL 25 mg daily and Xarelto 20 mg daily for afib. 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 CTA of head and neck were negative for any large vessel atherosclerotic plaque or stenosis. Pt was seen by cardiology and neurology. Echo was recommended, pt declined to stay beyond today as she wants to get back home to [place]. Will need echo and f/u BMP as outpatient, as well as MRI if PCP feels is indicated. Pt strongly advised to avoid alcohol. Pt advised to minimize ambulation, especially while alone. Condition at Discharge: Stable Home Meds Active Scripts Vit#96/Ferrous Fum/Fa ( TABLET) 1 Each Tablet, 1 TAB PO DAILY, #30 TAB 0 Refills Prov:DIAMOND YU MD 11/08/17 Metoprolol Succinate (METOPROLOL SUCCINATE ( XL )) 25 Mg Tab.er.24h, 25 MG PO DAILY, #30 TAB.SR 0 Refills Prov:DIAMOND YU MD 11/08/17 Rivaroxaban (XARELTO) 20 Mg Tablet, 20 MG PO DAILYBFRSUP, #30 TAB 0 Refills Prov:DIAMOND YU MD 11/08/17 Reported Medications Info (NO KNOWN MEDICATIONS PRIOR TO ADMISSTION) Each, 1 EACH , EACH 11/07/17 Inpatient Meds Current Medications Aspirin (Children'S Aspirin) 324 mg 1X ONCE PO Last administered on 11/06/17at 23:26; Start 11/06/17 at 23:45; Stop 11/07/17 at 10:53; Status DC Ondansetron HCl (Zofran) 4 mg 1X ONCE IV ; Start 11/06/17 at 23:45; Stop at 23:46; Status DC Sodium Chloride 1,000 ml @ 1,000 mls/hr 1X ONCE IV Last administered on at 23:26; Start 11/06/17 at 23:45; Stop 11/07/17 at 00:44; Status DC Ondansetron HCl (Zofran Odt) 4 mg STK-MED ONCE .ROUTE ; Start 11/06/17 at 23:14 ; Stop 11/06/17 at 23:15; Status DC Lorazepam (Ativan) 1 mg 1X ONCE IV Last administered on 11/06/17at 23:45; Start 11/06/17 at 23:45; Stop 11/06/17 at 23:46; Status DC Ondansetron HCl (Zofran) 4 mg PRN Q4HRS PRN IV NAUSEA/VOMITING Last administered on 11/07/17at 11:59; Start 11/07/17 at 01:00; Stop 11/08/17 at 00:59 ; Status DC Sodium Chloride 1,000 ml @ 125 mls/hr Q8H IV Last administered on 11/07/17at 01 :57; Start 11/07/17 at 00:52; Stop 11/07/17 at 02:57; Status DC Rivaroxaban (Xarelto) 20 mg 1X ONCE PO Last administered on 11/07/17at 01:56; Start 11/07/17 at 02:00; Stop 11/07/17 at 02:01; Status DC Lorazepam (Ativan) 2 mg PRN Q1HR PRN IV For CIWA 8-14 Last administered on 11/07at 09:31; Start 11/07/17 at 03:00; Stop 11/07/17 at 10:53; Status DC Lorazepam (Ativan) 4 mg PRN Q1HR PRN IV For CIWA 15 or greater; Start 11/07/17 at 03:00 Ondansetron HCl (Zofran Odt) 4 mg 1X ONCE PO Last administered on 11/06/17at 23 :15; Start 11/07/17 at 07:15; Stop 11/07/17 at 07:16; Status DC Thiamine HCl (Thiamine Im) 100 mg DAILY IM Last administered on 11/08/17at 08:01 ; Start 11/07/17 at 10:15 Prenat Multivit/ [place]/Iron/Folic Ac (Multivitamin ) 1 tab DAILY PO Last administered on 11/08/17at 08:15; Start 11/08/17 at 09:00 Multivitamins/ Minerals 10 ml/ Folic Acid 1 mg/ Thiamine HCl 100 mg/Sodium Chloride 1,011.1 ml @ 100 mls/ hr 1X ONCE IV Last administered on 11/07/17at 11:55; Start 11/07/17 at 12:00; Stop 11/07/17 at 22:06; Status DC Rivaroxaban (Xarelto) 20 mg DAILYWSUP PO Last administered on 11/07/17at 17:24; Start 11/07/17 at 17:00 Metoprolol Succinate (Toprol Xl) 25 mg DAILY PO Last administered on 11/08/17at 08:01; Start 11/07/17 at 11:00 Chlordiazepoxide (Librium) 50 mg PRN Q1HR PRN PO For CIWA 8-14; Start 11/07/17 at 11:00 Iohexol (Omnipaque 300 Mg/ml) 75 ml 1X ONCE IV Last administered on 11/07/17at 17:09; Start 11/07/17 at 15:45; Stop 11/07/17 at 15:46; Status DC Potassium Chloride (Klor-Con) 40 meq 1X ONCE PO ; Start 11/08/17 at 13:15; Stop 11/08/17 at 13:16 Active Scripts Active Tablet ( Vit#96/Ferrous Fum/Fa) 1 Each Tablet 1 Tab PO DAILY Metoprolol Succinate ( Xl ) (Metoprolol Succinate) 25 Mg Tab.er.24h 25 Mg PO DAILY Xarelto (Rivaroxaban) 20 Mg Tablet 20 Mg PO DAILYBFRSUP Reported No Known Medications Prior To Admisstion (Info) Each 1 Each Activity: as tolerated Diet: Cardiac Consulting Physician: YAZ GODFREY MD Consulting Speciality: Cardiac Follow-up Plan F/u with PCP DIAMOND Lujan MD November 08, 2017 13:20
[2017-11-08] MEDS: RIVAROXABAN 10 MG TABLET. PO SCH (13:37)
--- NOTE | 2017-11-08 16:19 | PN ---
DATE: 11/08/2017 SUBJECTIVE: The patient feels better today. Her tremor has improved over the last 24 hours. She stated she is an anxious person and that makes her tremor worse. She denies chest pain, shortness of breath or headaches or vertigo. OBJECTIVE: GENERAL: Well-developed, well-nourished white female, not in acute distress. VITAL SIGNS: Blood pressure 138/85, respiratory rate 20, pulse is 88 and irregular, temperature is 99.1, oxygen saturation 98% on room air. HEENT: Normocephalic, atraumatic, otherwise unremarkable. NECK: Supple. Negative for carotid bruit, lymphadenopathy or thyromegaly. LUNGS: Clear to A and P. CARDIOVASCULAR: Irregularly irregular rhythm, normal S1, S2. No murmur. ABDOMEN: Soft. Bowel sounds positive. EXTREMITIES: Negative for cyanosis, clubbing, pitting edema, but positive for hammertoes bilaterally. NEUROLOGICAL EXAM: 1. Mental Status: The patient is alert and oriented x 3. Speech is fluent. There is no language dysfunction, otherwise unremarkable. 2. Cranial nerves: Intact. 2. Motor: No focal muscle bulk was seen. The tone is normal. The strength is 4/5 throughout. The patient has a postural and kinetic tremor with intentional tremor as well. Sensory examination revealed diminished pinprick and light touch senses in patchy distributions in distal lower extremities. Deep tendon reflexes were symmetric with absent Achilles responses. Gait: The patient has ataxic gait with abnormal tandem gait with broad base steps. LABORATORY DATA: CBC revealed white blood cells of 5.3000, hemoglobin 11.3, hematocrit 33.1, platelet count is 105,000. Chemistry revealed sodium of 134, potassium 3.4, chloride 100, CO2 21, BUN 3, creatinine 0.6, glucose is 75 and calcium 8.3. DIAGNOSTIC DATA: Head CT scan revealed cerebral white matter chronic small vessel disease with possible right cerebellum infarct along with cerebral atrophy. CT head angio is unremarkable as well as a CT angio of the neck. IMPRESSION: 1. Persistent postural and kinetic tremor, slightly improved since admission. Etiology probably multifactorial, most likely due to chronic alcoholism, and lately aggravated by alcohol withdrawal. 2. Chronic atrial fibrillations with high risk of recurrent stroke. 3. Multiple medical problems includes chronic alcoholism, GERD, history of muscular dystrophy and possible peripheral neuropathy, mild hyponatremia and mild hypokalemia and thrombocytosis. RECOMMENDATIONS: 1. Continue with current management initiated by Dr. Rutledge. 2. Continue with Cardiology recommendations and take Xarelto. 3. Alcohol cessation. M Ricardo HUNTER MD DR: BRYANT/jewel JOB#: [id number] / [id number]
== END 2017-11-08 14:00 | disposition home or self-care (01) | DRG 92 ==
LOC: ER 22:31 → 1 SOUTH 11-07 01:37 → ICU 11-07 03:20
PROVIDERS: ADMIT Family Medicine; ATTEND Family Medicine
DX: G25.2 Other specified forms of tremor (principal); G71.0 Muscular dystrophy; E87.8 Other disorders of electrolyte and fluid balance, not elsewhere classified; D69.6 Thrombocytopenia, unspecified; G62.9 Polyneuropathy, unspecified; E87.1 Hypo-osmolality and hyponatremia; I50.9 Heart failure, unspecified; I11.0 Hypertensive heart disease with heart failure; I48.2 Chronic atrial fibrillation; F10.239 Alcohol dependence with withdrawal, unspecified; K44.9 Diaphragmatic hernia without obstruction or gangrene; Y90.9 Presence of alcohol in blood, level not specified; E87.6 Hypokalemia; K21.9 Gastro-esophageal reflux disease without esophagitis; M20.42 Other hammer toe(s) (acquired), left foot; M20.41 Other hammer toe(s) (acquired), right foot; Z91.14 Patient's other noncompliance with medication regimen; Z86.73 Personal history of transient ischemic attack (TIA), and cerebral infarction without residual deficits; Z79.01 Long term (current) use of anticoagulants; Z79.82 Long term (current) use of aspirin
CPT/HCPCS: 36415; 70450; 70496; 70498; 71045; 80048; 80053; 80076; 80307; 81001; 82550; 84484; 85025; 85651; 87641; 93005; 96361; 96374; G0480; J2060; J2405; Q0162; Q9967; 99285-25; G0479; J7030